=== PATIENT | female | born 1945 | race Caucasian/White ===

== ENCOUNTER 2018-06-06 19:10 | Emergency (ER) | payer BC, MEDICARE ==
--- NOTE | 2018-06-06 19:43 | ERPHSYRPT ---
- History of Present Illness Time Seen by Provider: 06/06/18 19:34 Source: patient Exam Limitations: no limitations Patient Subjective Stated Complaint: pt states she got her foot caught while walking up steps on her deck and hurt the top of her lt foot Triage Nursing Assessment: pt alert and oriented. answers questions approp. respirations nonlabored with lungs cta. pt in per wheelchair, transfers to stretcher per self, nwb on lt foot. cap refill, pedal pu lse wnl to lt foot Physician History: This is a 73-year-old white female arrives with complaint of pain on her dorsal left foot symptoms since 1699 today. According to the patient she was walking upstairs she caught her foot on the stairs she fell she hit her head no loss of consciousness complains of pain on her dorsal left foot pain with walking.. Past medical history includes coronary artery disease and high blood pressure Past surgical history includes Method of Injury: fell Occurred: just prior to arrival Severity of Pain-Max: moderate Severity of Pain-Current: mild Lower Extremities Pain: foot: left Modifying Factors: Improves With: movement, other (walking) Associated Symptoms: none Allergies/Adverse Reactions: No Known Drug Allergies Allergy (Verified 06/06/18 19:23) Home Medications: Atorvastatin Calcium [Lipitor 20MG Tablet] 20 mg PO DAILY 06/06/18 [History] Diltiazem HCl [Cartia Xt] 180 mg PO DAILY 06/06/18 [History] Losartan/Hydrochlorothiazide [Losartan-Hctz 50-12.5 mg Tab] 1 each PO DAILY 09/11 [History] Hx Tetanus, Diphtheria Vaccination/Date Given: No (PT UNSURE) Hx Influenza Vaccination/Date Given: No (2010) Hx Pneumococcal Vaccination/Date Given: Yes (2009) Immunizations Up to Date: Yes - Review of Systems Constitutional: No Fever, No Chills Eyes: No Symptoms Ears, Nose, & Throat: No Symptoms Respiratory: No Cough, No Dyspnea Cardiac: No Chest Pain, No Edema, No Syncope Abdominal/Gastrointestinal: No Abdominal Pain, No Nausea, No Vomiting, No Diarrhea Genitourinary Symptoms: No Dysuria Musculoskeletal: Other (pain dorsal left foot) Skin: Other (small abrasion left dorsal foot) Neurological: No Dizziness, No Focal Weakness, No Sensory Changes Psychological: No Symptoms Endocrine: No Symptoms All Other Systems: Reviewed and Negative - Past Medical History Pertinent Past Medical History: Yes Cardiac History: Coronary Artery Disease, Hypertension - Past Surgical History Past Surgical History: Yes Female Surgical History: Section Other Surgical History: finger surgery - Social History Smoking Status: Never smoker Exposure to second hand smoke: No Drug Use: none Patient Lives Alone: No - Nursing Vital Signs Nursing Vital Signs: Initial Vital Signs Temperature 98.5 F 06/06/18 19:17 Pulse Rate 72 06/06/18 19:17 Respiratory Rate 18 06/06/18 19:17 Blood Pressure 172/73 06/06/18 19:17 O2 Sat by Pulse Oximetry 98 06/06/18 19:17 Pain Scale Pain Intensity 2 - Physical Exam General Appearance: alert Eyes, Ears, Nose, Throat Exam: moist mucous membranes Neck Exam: non-tender, supple Cardiovascular/Respiratory Exam: chest non-tender, normal breath sounds, regular rate/rhythm, no respiratory distress Gastrointestinal/Abdominal Exam: non-tender, guarding Back Exam: normal inspection, No vertebral tenderness Hips Exam: bilateral: non-tender, normal inspection, normal range of motion, no evidence of injury Legs Exam: bilateral leg: non-tender, normal inspection, normal range of motion , no evidence of injury Knees Exam: bilateral knee: non-tender, normal inspection, normal range of motion, no evidence of injury Ankle Exam: bilateral ankle: non-tender, normal inspection, normal range of motion, no evidence of injury Foot Exam: right foot: non-tender, normal inspection, normal range of motion, no evidence of injury, left foot: other (Left dorsal foot with ecchymosis, tender with palpation tender dorsal left foot with movement left toes, and palpation, good capillary refill left toes, sensation intact left toes, dorsal pedal, posterior tibial pulses intact left foot, small abrasion dorsal left foot.) DTR - Lower Extremities Exam: ankle (R): 2+, ankle (L): 2+ Neuro/Tendon Exam: normal sensation, normal motor functions Mental Status Exam: alert, oriented x 3, cooperative Skin Exam: other (small abrasion dorsal left foot, ecchymosis dorsal left foot) SpO2 Interpretation: normal (98%) SpO2: 98 Oxygen Delivery: Room Air - Course Nursing assessment & vital signs reviewed: Yes - Radiology Exams Left Foot X-ray Interpretation: Interpreted by me, Negative, No Fracture, No Subluxation Ordered Tests: Active Orders 24 hr Category Date Time Status Hao Bandage Application -[facility] STAT Care 06/06/18 20:01 Active Splint STAT Care 06/06/18 20:01 Active Wound Care STAT Care 06/06/18 20:01 Active FOOT (MINIMUM 3 VIEWS) Stat Exams 06/06/18 19:38 Taken Medication Summary Generic Name Dose Route Start Last Admin Trade Name Freq PRN Reason Stop Dose Admin Bacitracin Zinc 0.9 gm 06/06/18 20:01 Baciguent Packet TP 06/06/18 20:02 STAT ONE - Progress Progress: improved Progress Note: 06/06/18 20:03 73-year-old white female with history of atherosclerotic coronary artery disease , high blood pressure arrives with complaint of pain bruising and abrasion to left dorsal foot she states she caught her foot on in stairs she fell she hit her head no loss of consciousness patient has no neck pain she has mild bruising tenderness with palpation and a slight abrasion to her dorsal left foot. She is tender with palpation on the dorsal left foot she has pain with movement of her left toes dorsal left foot x-ray of her left foot negative fracture negative subluxation. I've offered patient pain medication in the emergency room she does not want these at this time will write for a very small amount of [place] that she can take. Will go ahead and have the nurses clean the patient's dorsal left foot apply bacitracin Hao wrap and postop shoe. - Departure Time of Disposition: 20:04 Departure Disposition: Home Clinical Impression: Left foot pain, Abrasion, left foot, initial encounter Strain of left foot Qualifiers: Encounter type: initial encounter Qualified Code(s): S96.912A - Strain of unspecified muscle and tendon at ankle and foot level, left foot, initial encounter Condition: Fair Critical Care Time: No Referrals: EDI PARDO [Primary Care Provider] - Instructions: Contusion (DC), Foot Sprain (DC) Additional Instructions: Return home. Ice and elevate left foot 24-48 hours. [place] as prescribed for pain. Follow-up with your family doctor if symptoms worse, no better in 48 hours, or persist longer than one week. Return for acute distress or for severe symptoms. Prescriptions: Hydrocodone/Acetaminophen [[place] 5-325 Tablet] 1 tab PO Q4-6HPRN PRN #10 tablet MDD 6 tablets PRN Reason: Pain
[2018-06-06] MEDS ORDERED: BACIGUENT PACKET TP ONE (20:01)
[2018-06-06] MEDS ORDERED: BACIGUENT PACKET ONE (20:18)
[2018-06-06 20:31] VITALS: BP 130/72; PULSE 60; O2SAT 97
--- NOTE | 2018-06-07 08:45 | XRAY ---
Indication: Pain and swelling following tripping injury. Comparison: None 3 nonweightbearing views of the left foot demonstrates small plantar heel spur, tiny 1st metatarsal head spur, and a cuboid accessory ossicle. No other bony, articular, or soft tissue abnormalities.
== END 2018-06-06 20:39 | disposition home or self-care (01) ==
LOC: ED 19:10
DX: S96.912A Strain of unspecified muscle and tendon at ankle and foot level, left foot, initial encounter (principal); M79.672 Pain in left foot; S90.812A Abrasion, left foot, initial encounter; W10.9XXA Fall (on) (from) unspecified stairs and steps, initial encounter; Y93.01 Activity, walking, marching and hiking; Y92.008 Other place in unspecified non-institutional (private) residence as the place of occurrence of the external cause; Z79.899 Other long term (current) drug therapy
CPT/HCPCS: 73630; 99284; A9270-GY

== ENCOUNTER 2019-05-22 18:11 | Emergency (ER) | payer MEDICARE, BC ==
--- NOTE | 2019-05-22 18:48 | ERPHSYRPT ---
- History of Present Illness Time Seen by Provider: 05/22/19 18:20 Source: patient Exam Limitations: no limitations Patient Subjective Stated Complaint: pt states she was in her shed and something fell on her foot from above her head, pt does not know what fell on her foot. pt states she has no pain Triage Nursing Assessment: pt is alert and oriented, states she has no pain in her r foot at this time. large hematoma present on anterior aspect of foot Physician History: Pt states, she was in the shed, tried to move something on the shelf about one hour ago, and something else fell on her foot. She does not know what was it, but she developed a hematoma on the back of her foot. She denies any pain, except some discomfort, when walking, denies other injury or complaints. Method of Injury: direct blow Occurred: just prior to arrival Quality: constant Severity of Pain-Max: mild Severity of Pain-Current: mild Lower Extremities Pain: foot: right (hematoma) Modifying Factors: Improves With: nothing Associated Symptoms: none Allergies/Adverse Reactions: No Known Drug Allergies Allergy (Verified 05/22/19 18:28) Home Medications: Atorvastatin Calcium [Lipitor 20MG Tablet] 20 mg PO DAILY 06/06/18 [History] Diltiazem HCl [Cartia Xt] 180 mg PO DAILY 06/06/18 [History] Losartan/Hydrochlorothiazide [Losartan-Hctz 50-12.5 mg Tab] 12.5 mg PO DAILY 09/11 [History] Donepezil HCl 10 mg [Aricept 10 MG] 10 mg PO DAILY 05/22/19 [History] Memantine HCl 05/22/19 [History] Hx Tetanus, Diphtheria Vaccination/Date Given: No Hx Influenza Vaccination/Date Given: No (2010) Hx Pneumococcal Vaccination/Date Given: Yes (2009) - Review of Systems Constitutional: No Symptoms Respiratory: No Symptoms Cardiac: No Symptoms Abdominal/Gastrointestinal: No Symptoms Musculoskeletal: Other (swelling, hematoma on right dorsal foot.) Neurological: No Symptoms All Other Systems: Reviewed and Negative - Past Medical History Pertinent Past Medical History: Yes Neurological History: Dementia Cardiac History: Arrhythmia, Hypertension - Past Surgical History Past Surgical History: Yes (csection) Female Surgical History: Section Other Surgical History: finger surgery - Social History Smoking Status: Never smoker Exposure to second hand smoke: No Drug Use: none Patient Lives Alone: No - Nursing Vital Signs Nursing Vital Signs: Initial Vital Signs Temperature 98.3 F 05/22/19 18:18 Pulse Rate 60 05/22/19 18:18 Respiratory Rate 16 05/22/19 18:18 Blood Pressure 139/70 05/22/19 18:18 O2 Sat by Pulse Oximetry 99 05/22/19 18:18 Pain Scale Pain Intensity 0 - Physical Exam General Appearance: no apparent distress Eyes, Ears, Nose, Throat Exam: normal ENT inspection Neck Exam: normal inspection, non-tender Cardiovascular/Respiratory Exam: chest non-tender, normal breath sounds, heart sounds normal Gastrointestinal/Abdominal Exam: non-tender, soft Foot Exam: right foot: swelling (golf ball sized hematoma on the dorsal foot, no deformity, good distal circulation and sensation.) Neuro/Tendon Exam: normal sensation, normal motor functions Mental Status Exam: alert, oriented x 3 Skin Exam: normal color, warm, dry SpO2 Interpretation: normal SpO2: 99 O2 Delivery: Room Air - Course Nursing assessment & vital signs reviewed: Yes - Radiology Exams Right Foot X-ray Interpretation: Interpreted by me, Negative, Other (soft tissue swelling) Ordered Tests: Active Orders 24 hr Category Date Time Status FOOT (MINIMUM 3 VIEWS) Stat Exams 05/22/19 18:24 Ordered - Progress Progress: unchanged Progress Note: 05/22/19 18:48 Pt denies any pain, comfortable, reviewed her X ray, explained to her and her daughter, applied LANDY band and discharged to rest x 2-3 days with elevated leg, apply ice to swelling and follow up with her physician in 2-3 days. Counseled pt/family regarding: diagnosis, need for follow-up, rad results - Departure Departure Disposition: Home Clinical Impression: Foot contusion Qualifiers: Encounter type: initial encounter Laterality: right Qualified Code(s): S90.31XA - Contusion of right foot, initial encounter Condition: Stable Critical Care Time: No Referrals: EDI PARDO [Primary Care Provider] - Instructions: Contusion (DC), Foot Sprain (DC) Additional Instructions: Rest x 2-3 days with elevated leg,apply ice or cold compresses to swelling, and follow up with her physician in 2-3 days, return if severe pain, swelling, or sudden discoloration, coldness or numbness of the toes!
[2019-05-22 18:57] VITALS: BP 145/72; PULSE 56; O2SAT 98
--- NOTE | 2019-05-23 08:55 | XRAY ---
Indication: Pain and swelling following injury. Comparison: None 3 nonweightbearing views of the right foot demonstrates anterior soft tissue swelling, advanced 1st MTP degenerative arthropathy, small plantar heel spur, and tiny cuboid accessory ossicle. No other bony, articular, or soft tissue abnormalities.
== END 2019-05-22 19:05 | disposition home or self-care (01) ==
LOC: ED 18:11
DX: S90.31XA Contusion of right foot, initial encounter (principal); W22.8XXA Striking against or struck by other objects, initial encounter
CPT/HCPCS: 73630; 99283